=== PATIENT | female | born 1980 | race Caucasian/White ===

== ENCOUNTER 2018-02-02 08:11 | Day surgery (SDC) | payer OTHER, SELFPAY ==
[2018-01-28 15:06] LABS: Hematocrit 36.6 % (37-47); Hemoglobin 11.8 g/dl (12.0-15.0); Mean Corp Hgb Conc 32.2 g/gl (32-36); Mean Corpuscular Hgb 28.4 pg (27.0-32.0); Mean Corpuscular Volume 88.2 fL (81-99); Mean Platelet Vol. 10.6 fl (6.2-12.0); Platelet Count 259 K/mm3 (150-450); RBC Distribution Width CV 14.4 % (11.6-14.6); RBC Distribution Width SD 46.4 fl (35.1-43.9); Red Blood Count 4.15 M/mm3 (4.2-5.4); White Blood Count 7.4 K/mm3 (4.4-11.0)
[2018-01-28 15:10] LABS: Scan Indicated on CBC? Y/N NO
[2018-01-28 16:30] LABS: International Normalized Ratio 0.9; Prothrombin Time (Protime)PT. 12.4 SECONDS (11.7-14.9)
[2018-01-28 16:31] LABS: Partial Thromboplast Time 26.4 Seconds (24.1-36.2)
[2018-01-28 16:40] LABS: Pregnancy, Serum, hCG Quali. NEGATIVE Negative (0-9 Nonpreg)
--- NOTE | 2018-02-01 17:52 | HP.PCM_ITS ---
History and Physical Date of Admission: 02/02/18 Surgical History and Physical Mala Jordan, a 37 year old female 2 0 4 0 2, presents for HTA, Hysteroscopy and laparoscopic bilateral salpingectomy; filsche clips on February 02, 2018 at 10:00. -- Desires Permanent Sterilization; Extremely Heavy Menses -- Heavy periods which began several years ago. Mala claims it started gradually It occurs with menses. It is located in the vagina. Severity is severe and worsening; Associated signs and symptoms are OCPs did not help. Additional comments are: wants a tubal; Additional comments are: U/S shows small 1 cm fibroid in area of cervix and small ovarian cyst. MEDICATIONS HISTORY: Patient is also takin. Celexa 20 mg tablet, daily 2. Xanax 0.5 mg tablet, PRN ALLERGIES: NKA, Sulfa (Sulfonamide Antibiotics), Hives and/or rash, [place], Swelling-mouth, Chlorhexidine and Swelling (localized) Infections - chickenpox as a child Illnesses - no serious past illnesses Accidents - no injuries of consequence Hospitalizations - Childbirth Review of Systems: GENERAL - Denies fever, or chills SKIN - Denies skin changes EYES - wears eye glasses and wears contact lenses EARS - Denies difficulty hearing NOSE - Denies nasal congestion or bleeding MOUTH - Denies sore throat or difficulty swallowing NECK - Denies pain or swelling RESPIRATORY - Denies shortness of breath or wheezing CARDIOVASCULAR - Denies palpitations or chest pain GASTROINTESTINAL - Denies nausea, vomiting, diarrhea, constipation GENITOURINARY - Denies dysuria, frequency of urination, urgency, or hesitancy MUSCULOSKELETAL - Denies joint or muscle pain NEUROLOGICAL - Denies localized numbness or weakness PSYCHIATRIC - Denies depression or anxiety ENDOCRINE - Denies heat or cold intolerance, weight loss or gain HEMATO-IMMUNOLOGIC - Denies excesive bleeding with cuts SOCIAL HISTORY: Alcohol Use - denies drinking Smoking - Smokes--advised to quit Diet - balanced Diet Lifestyle - moderate stress lifestyle and Exercise - active work Seat Belt Use - always Employer - [employer] 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 MENSTRUAL HISTORY: LMP Known?- DefiniteAmount/Duration - 7-10 days, Regularity - regular, Frequency - monthly days, LMP - 01/16/18, Age Onset Menarche - 11 PAST PREGNANCIES: Total Pregnancies - 6; Full Term Pregnancies - 2; Premature - 0; Abortions, Induced - 0; Abortions, Spontaneous - 4; Ectopics - 0; Multiple Births - 0; Living Children - 2 SURGICAL HISTORY: 1. 01/01/2007 ; Kaushal Johnson M.D. 2. repeat 08/11/2016 3. [place] Teeth Removal PHYSICAL EXAM BP- 122/72 Sitting, Right arm, regular cuff Weight- 234.46798 lbs Height- 63.00 inch BMI:41.54 CONSTITUTIONAL - NAD, well nourished, and well developed SKIN - No rash, lesions, or ulcers HEENT - Normocephalic, PERRLA, EOMI NECK - No nodes, no nuchal rigidity and thyroid normal size and texture LYMPH NODES - Palpation of lymph nodes in neck and groins within normal limits LUNGS - CTA x2 without wheezes, crackles or rales CARDIAC - Regular rate and rhythm without rubs, murmurs, or gallops ABDOMEN - Without hepatosplenomegaly, distention, masses, rebound, or guarding; normal bowel sounds; no hernias EXTREMITIES - No edema or calf tenderness NEUROLOGICAL - Cranial nerves II-XII grossly intact PSYCHIATRIC - A and O to time, place, person, mood and affect DETAILED PELVIC EXAM External Genitial Vagina - non-tender without lesions Urethra/Urethral Meatus - non-tender Bladder - non-tender Vagina - vaginal li are pink and moist without loss of rugae and no evidence of atropy Cervix - without cervical motion tenderness and has normal size and features without evident lesions Uterus - 5-6 cm in size, mobile and nontender Adnexa - clear without massess or tenderness ASSESSMENT/PLAN: 1. Encounter For Sterilization and Menorrhagia U/S ok for ablation; EMBx results ok; TSH last fall OK at PCP. Discussed RBAs of HTA and tubal with salpingectomy/Filsche clips at length and will proceed.
--- NOTE | 2018-02-02 | EMB_PTH ---
PATIENT: DARI GILLESPIE LOC: [facility] – [place] U#:[id number] AGE/SX: 37/F ROOM: RE02/02/[address]: Dr. Kaushal Johnson MD : 1980 BED: DIS: 02/02/2018 SPEC #: [id number] RECD: 02/02/18 14:36 STATUS: CHERRIE PAUL #: [id number] MARTY: 02/02/18 00:[address]: Kaushal Johnson DEPT: SURGICAL PATHOLOGY RECD BY: Julio Lopez ENTERED: 02/02/18 14:36 SP TYPE: ENDOM BX/C MICHELLE DR: Dr. Agus Crawford MD Tissues: A - Endometrium, NOS B - Fallopian tube Procedures: Surgery Specimen Level II Surgery Specimen Level IV HEADER OPERATION: Hysteroscopy, hydroablation PRE-OP DIAGNOSIS: Menorrhagia TISSUE SUBMITTED: A ? Endometrial curettings, B ? Bilateral fallopian tubes MICROSCOPIC DIAGNOSIS A. Endometrial curettings: Secretory endometrium. Fragments of benign ecto- and endocervical mucosa. Submucosal leiomyoma (1 cm in greatest dimension). B. Bilateral fallopian tubes: Bilateral fallopian tubes including fimbrial ends, no pathologic diagnosis. Paratubal cyst. Focal changes consistent with serous cystadenofibroma (2 cm in greatest dimension). SJ:rg 02/03/18 COMMENT Case has been reviewed in consultation with Dr. Figueroa who concurs with the above diagnosis. IDC:AM MICROSCOPIC DESCRIPTION Slides are reviewed. GROSS DESCRIPTION A - Received in fixative is one container labeled with the patient's name and designated endometrial curettings. The specimen consists of multiple irregular fragments of pink, hemorrhagic soft tissue that in aggregate measure 5 x 3 x 0.3 cm. Also present in the container is a piece of goddard, indurated nodule measuring 1 x 0.5 x 0.5 cm. The entire specimen is submitted in three cassettes as follows: 1 & 2 - hemorrhagic soft tissue, 3 ? bisected, indurated nodule. B - Received is one container labeled with the patient's name and designated bilateral fallopian tubes. The specimen consists of bilateral fallopian tubes including fimbrial ends. The fallopian tubes are not identified as right or left. One of the fallopian tubes measure 4.5 cm in length and 0.5 cm in diameter. Sections reveal unremarkable cut surfaces. The second fallopian tube is received in two pieces, the proximal and measures 3 cm in length and 0.5 cm in diameter. Sections reveal unremarkable cut surfaces. The second piece consists of fimbrial ends with a paratubal cyst measuring in aggregate 2.5 x 1.5 x 0.5 cm. The paratubal cyst measures up to 1 cm in greatest dimension. A collapsed cyst is also noted which measures 2 cm in greatest dimension. Claims Director sections are submitted in three cassettes as follows: 1 ? intact fallopian tube, 2 ? second fallopian tube, 3 ? paratubal cyst and collapsed cyst. The cysts are submitted in entirety. / SJ:rg 02/02/18 TC:1 CPT: 88053, 79929 x2
[2018-02-02 08:35] LABS: Internal QC Validated? YES +Cl - CLEAR BKGD
[2018-02-02 08:37] LABS: Pregnancy, Urine Negative Negative
[2018-02-02 09:00] VITALS: BP 123/58; PULSE 74; RESP 16; TEMP 36.3; O2SAT 98; BMI 41.5
--- NOTE | 2018-02-02 10:48 | OP.PCM_ITS ---
Operative Report Date of Procedure: 02/02/18 Surgeon: Kaushal Johnson MD, FACOG Anesthesia: Sarina Paige CRNA Type of anesthesia: General Endotracheal Procedure: Diagnostic Hysteroscopy, Dilation and Curettage, Hydrothermal Ablation, Laparoscopic Bilateral Tubal Occlusion with Filshie clips and Partial Bilateral Distal Salpingectomy Pre-op: Menorrhagia, Desires Sterilization Post-Op: Menorrhagia, Desires Sterilization Findings: 10-12 cm EM cavity with plush endometrium and 1 cm submucous fibroid; adhesions of the omentum to the anterior abdominal wall and some small adhesions of the uterus to the anterior abdominal wall from prior C-sections. Left 2.5 cm peritubal cyst; normal pelvis otherwise. Robotic hysterectomy would be feasible but takedown of some omental adhesions would be necessary. Indication: This is a 37 year old patient who has been having problems with extremely heavy menses. She also desires permanent sterilization. Conservative measures have not been helpful. Endometrial sampling was benign and pelvic ultrasound showed that ablation may be helpful. Pt has been counseled regarding the risks, benefits and alternatives of this procedure and all questions answered. She understands that only about half of patients will have amenorrhea after this procedure. She also understands the permanent nature of her tubal as well as the failure rate of 1-2%. All questions were answered we consider the patient well-informed. Procedure: Patient taken to the operating room where after induction of general anesthesia the patient was prepped and draped in the usual sterile fashion. Bladder was drained of urine with a catheter. Anterior cervix grasped and cervix was dilated to about 17 [place] size. Hysteroscopic hydrothermal ablation (HTA) unit was place in the cervix and the above findings were noted. HTA unit was removed and the uterus was gently curretted removing all contents including the submucous fibroid. An HTA ablation cycle was attempted but there was unacceptable loss of fluid and after 3 tries the unit shutdown. This was thought due to the enlarged uterus and subsequent relaxation. Pitocin was given, Conn cannula was placed and attention was turned toward the laparoscopic portion of the procedure. Approximately 20 cc of half percent ropivacaine was injected subumbilically and suprapubically. A 5 mm bladeless trocar was placed subumbilically and intraperitoneal placement confirmed. After CO2 insufflation was complete, a 7- 8 mm bladeless trocar was introduced suprapubically. The above findings were noted. Each fallopian tube was identified to its fimbriated end and an Enseal device was used to divide the mesosalpinx leaving approximately 1 cm stump of fallopian tube on each side. Filshie clips were placed on the stump of each fallopian tube. Photographs were taken. Laparoscopic instruments with as much CO2 gas as possible were removed and incisions were closed with interrupted 4-0 Monocryl suture. Steri-Strips placed across the incision. Attention was again turned toward the hydrothermal ablation portion of the procedure. A new unit was placed in the cervix and a 10-minute heat cycle was carried out at approximately 90 ?C without difficulty and without loss of fluid and an appropriate cool down cycle. Excellent ablation was visualized after completing this portion of the procedure. Patient tolerated procedure well was taken to recovery room in satisfactory condition sponge instrument and needle counts were all reportedly correct. Estimated blood loss for the case was minimal. Specimens to pathology were endometrial curettings and bilateral distal fallopian tubes.
--- NOTE | 2018-02-02 10:49 | DCINST_ITS ---
Discharge Diet: No Restrictions Discharge Activity: Return to Normal Activity, May Drive - when you are no longer taking pain/narcotic medicines., May Shower, May Take a Tub Bath Additional Activity Instructions:: Ambulate often the next week after surgery. Nothing in the vagina for 5 days. Call your doctor if your incision/area has: Continuous Slow Oozing, Sudden Increased Bleeding, Increased Pain/ Swelling, Increased Redness, Foul Smelling Discharge Call your doctor if you observe: Fever of 101 or Higher, Inability to urinate, Inability to have a bowel movement, Using more than one pad per hour Allergies/Adverse Reactions: Allergies Sulfa (Sulfonamide Antibiotics) Allergy (Verified 01/28/18 09:15) Hives Medications to take at Discharge ALPRAZolam [Xanax] 0.5 mg PO BID PRN PRN 01/28/18 Citalopram Hydrobromide [Celexa] 20 mg PO DAILY 01/28/18 Hydrocodone/Acetaminophen [[place] 5-325 Tablet] 1 ea PO Q4H PRN PRN 7 Days #10 tab 02/02/18 The following prescriptions were given: Hydrocodone/Acetaminophen [[place] 5-325 Tablet] 1 ea PO Q4H PRN PRN 7 Days #10 tab PRN Reason: Severe Pain (6-04/29) Primary Care Physician: Agus Crawford MD [Primary Care Provider] - Test Results: Test results from this visit will be discussed in further detail at your follow- up appointment, if applicable. Please Follow Up With: Kaushal Johnson MD - [phone] When: 2-3 weeks
[2018-02-02] MEDS: Ropivacaine 0.5% 30 ML Vial (11:30)
[2018-02-02 12:39] VITALS: BP 121/57; BP 123/58; PULSE 78; RESP 16; TEMP 36; O2SAT 94
[2018-02-02 12:45] VITALS: BP 107/50; BP 123/58; PULSE 78; RESP 16; O2SAT 93
[2018-02-02 13:00] VITALS: BP 115/57; BP 123/58; PULSE 71; RESP 16; TEMP 36.1; O2SAT 99
[2018-02-02 14:42] VITALS: BP 123/58
== END 2018-02-02 14:43 | disposition home or self-care (01) ==
LOC: SDC 08:11 → AC 08:12
PROVIDERS: Anesthesiology; Family Provider Family Medicine; PCP Family Medicine; Visit Provider Obstetrics & Gynecology
PROC: 0U5B8ZZ Destruction of Endometrium, Via Natural or Artificial Opening Endoscopic (ICD-10-PCS; CPT 58563; principal; 2018-02-02 09:45)
PROC: (CPT 58671; 2018-02-02 09:45)
DX: D25.0 Submucous leiomyoma of uterus (principal); N83.209 Unspecified ovarian cyst, unspecified side; Z30.2 Encounter for sterilization; N83.8 Other noninflammatory disorders of ovary, fallopian tube and broad ligament; F32.9 Major depressive disorder, single episode, unspecified; F41.9 Anxiety disorder, unspecified; F17.200 Nicotine dependence, unspecified, uncomplicated; Z79.899 Other long term (current) drug therapy; Z86.2 Personal history of diseases of the blood and blood-forming organs and certain disorders involving the immune mechanism
CPT/HCPCS: 58563; 58671; 36415; 81025; 84703; 85027; 85610; 85730; 86850; 86900; 88302; 88305; J7120; C1760; J2405

== ENCOUNTER 2018-11-30 05:27 | Day surgery (SDC) | payer OTHER, SELFPAY ==
[2018-11-25 15:34] LABS: Hematocrit 37.5 % (37-47); Hemoglobin 12.3 g/dl (12.0-15.0); Mean Corp Hgb Conc 32.8 g/gl (32-36); Mean Corpuscular Hgb 28.1 pg (27.0-32.0); Mean Corpuscular Volume 85.8 fL (81-99); Mean Platelet Vol. 10.7 fl (6.2-12.0); Platelet Count 294 K/mm3 (150-450); RBC Distribution Width CV 14.4 % (11.6-14.6); RBC Distribution Width SD 45.3 fl (35.1-43.9); Red Blood Count 4.37 M/mm3 (4.2-5.4); White Blood Count 10.6 K/mm3 (4.4-11.0)
[2018-11-25 15:36] LABS: Partial Thromboplast Time 24.1 Seconds (24.1-36.2); Scan Indicated on CBC? Y/N NO
[2018-11-25 15:53] LABS: Creatinine, Serum 0.95 mg/dL (0.55-1.02); EST Glomerular Filtration Rate 70 mL/min (>60); Est Glom Filt Rate - Afr Amer 84 mL/min (>60)
--- NOTE | 2018-11-29 21:10 | HP.PCM_ITS ---
History and Physical Date of Admission: 11/30/18 Surgical History and Physical Mala Jordan, a 38 year old female 2 0 4 0 2, presents for [facility] on November 30, 2018 at 7:30. -- Pelvic Cramping after Ablation; Hematocolpos -- Heavy Period and alot of cramping which began several weeks ago. Mala claims it started suddenly and has been present worsened in last 2 weeks. It occurs all the time. It is located in the lower abdomen. Mala characterizes it to be non-radiating. Mala characterizes the quality cramping.; Mala characterizes the quality sharp, heavy bleeding x 1. Severity is moderate and very concerned; Additional comments are: Had Ablation 01/2018; Additional comments are: some increasing cramping for a few weeks then bleeding for a few weeks with severe cramping then cramping persisting after bleeding stopped. MEDICATIONS HISTORY: Patient is also takin. Celexa 20 mg tablet, daily ALLERGIES: NKA, Sulfa (Sulfonamide Antibiotics), Hives and/or rash, [place], Swelling-mouth, Chlorhexidine and Swelling (localized) Infections - chickenpox as a child Illnesses - no serious past illnesses Accidents - no injuries of consequence Hospitalizations - Childbirth Review of Systems: GENERAL - Denies fever, or chills SKIN - Denies skin changes EYES - Denies visual changes EARS - Denies difficulty hearing NOSE - Denies nasal congestion or bleeding MOUTH - Denies sore throat or difficulty swallowing NECK - Denies pain or swelling RESPIRATORY - Denies shortness of breath or wheezing CARDIOVASCULAR - Denies palpitations or chest pain GASTROINTESTINAL - Denies nausea, vomiting, diarrhea, constipation GENITOURINARY - Denies dysuria, frequency of urination, incontinence of urine MUSCULOSKELETAL - Denies joint or muscle pain NEUROLOGICAL - Denies localized numbness or weakness PSYCHIATRIC - Denies depression or anxiety ENDOCRINE - Denies heat or cold intolerance, weight loss or gain HEMATO-IMMUNOLOGIC - Denies excesive bleeding with cuts SOCIAL HISTORY: Alcohol Use - denies drinking Smoking - used to smoke but quit and quit 11/18/18 Diet - balanced Diet Lifestyle - moderate stress lifestyle and Exercise - active work Seat Belt Use - always Employer - [employer] -- [employer] 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 MENSTRUAL HISTORY: LMP Known?- HTAAmount/Duration - 8 days, Regularity - regular, Frequency - monthly days, LMP - 11/11/18, Age Onset Menarche - 11 PAST PREGNANCIES: Total Pregnancies - 6; Full Term Pregnancies - 2; Premature - 0; Abortions, Induced - 0; Abortions, Spontaneous - 4; Ectopics - 0; Multiple Births - 0; Living Children - 2 SURGICAL HISTORY: 1. 01/01/2007 ; Kaushal Johnson M.D. 2. 02/02/2018 hysteroscopy, D and C, HTA,Lap BTO with filshie clips and BPDS ; Kaushal Johnson M.D. 3. repeat 08/11/2016 4. [place] Teeth Removal PHYSICAL EXAM BP- 134/58 Sitting, Right arm, regular cuff Weight- 230.56614 lbs Height- 63 inch BMI:40.83 CONSTITUTIONAL - NAD, well nourished, and well developed SKIN - No rash, lesions, or ulcers HEENT - Normocephalic, PERRLA, EOMI NECK - No nodes, no nuchal rigidity and thyroid normal size and texture LYMPH NODES - Palpation of lymph nodes in neck and groins within normal limits LUNGS - CTA x2 without wheezes, crackles or rales CARDIAC - Regular rate and rhythm without rubs, murmurs, or gallops ABDOMEN - Without hepatosplenomegaly, distention, masses, rebound, or guarding; normal bowel sounds; no hernias EXTREMITIES - No edema or calf tenderness NEUROLOGICAL - Cranial nerves II-XII grossly intact PSYCHIATRIC - A and O to time, place, person, mood and affect Uterus - 10-12 cm uterus External Genitial Vagina - non-tender without lesions Urethra/Urethral Meatus - non-tender Bladder - non-tender Vagina - vaginal li are pink and moist without loss of rugae and no evidence of atropy Cervix - without cervical motion tenderness and has normal size and features without evident lesions and dilator with dark black thick liquid from cervix with relief of pain ASSESSMENT/PLAN: 1. Hematocolpos S/P HTA ablation with uterine fibroid removal. Suspicious for fibroid recurrence. Given relief with dilator waited to see if hematocolpos recurs and pain did recur. Given this, plan proceeding with RAVH/BS. Discussed RBAs and all questions answered.
[2018-11-30] VITALS (15 sets, daily range): BP systolic 93–129; BP diastolic 43–65; PULSE 71–103; RESP 14–18; TEMP 35.9–37.4; O2SAT 91–98; BMI 40.4
--- NOTE | 2018-11-30 07:30 | HYST_PTH ---
PATIENT: DARI GILLESPIE LOC: [facility] – [place] U#:[id number] AGE/SX: 38/F ROOM: RE11/30/[address]: Dr. Kaushal Johnson MD : 1980 BED: DIS: 12/01/2018 SPEC #: [id number] RECD: 11/30/18 11:28 STATUS: CHERRIE PAUL #: [id number] MARTY: 11/30/18 07:[address]: Kaushal Johnson DEPT: SURGICAL PATHOLOGY RECD BY: Kailey Crawford ENTERED: 11/30/18 11:49 SP TYPE: HYSTERECT OTHR DR: Niru Hoang PA-C Tissues: Uterus, NOS Procedures: Surgery Specimen Level V HEADER OPERATION: Robotic assisted vaginal hysterectomy PRE-OP DIAGNOSIS: Hematocolpos TISSUE SUBMITTED: Uterus, cervix MICROSCOPIC DIAGNOSIS Uterus, hysterectomy: Cervix - squamous metaplasia and mild chronic inflammation. Endometrium - secretory endometrium with recent mucosal hemorrhage. Myometrium - microscopic leiomyomas. AM:lionel 12/01/18 COMMENT Microscopic leiomyomas are identified in the superficial myometrium. One of these leiomyomas forms a polypoid mass extending into the endometrial cavity. Reference is made to the patient's previous endometrial curettings ([id number]) in which fragments of benign submucosal leiomyoma were identified. MICROSCOPIC DESCRIPTION Slides are reviewed. GROSS DESCRIPTION Received in fixative is one container labeled with the patient's name and designated uterus, cervix. The specimen consists of a hysterectomy specimen consisting of uterus with cervix weighing 92 gm and measuring 10 x 6 x 4 cm. The serosal surface is focally ragged. Most of the resection margin surface is ragged. The external os is circular in contour. The ectocervical mucosa is unremarkable. The uterus is partially disrupted at the level of internal os. The endocervical canal measures 4 cm in length and the endocervical mucosa is goddard, glistening and unremarkable. The triangular endometrial cavity measures 4 cm in length and up to 2 cm in width. No obvious blood clots are noted in the endometrial cavity. The endometrium is goddard, glistening and measures 0.1 cm in thickness and shows a small sessile polyp measuring 0.3 cm in greatest dimension. The myometrial wall underneath the polyp is not indurated. The rest of the myometrium measures <0.1 cm in thickness. Sections of the uterine wall do not reveal any mass lesion and measures 2 cm in thickness. Improvement Advisor sections are submitted in seven cassettes as follows: 1 - anterior cervix, 2 - posterior cervix, 3 & 4 - anterior uterine wall, 5 & 6 - posterior uterine wall, 7 - endometrial polyp and underlying uterine wall. The polyp is submitted in entirety. / SJ:lionel 11/30/18 TC:1 CPT: 56767
--- NOTE | 2018-11-30 07:42 | OP.PCM_ITS ---
Report of Operation Date of Procedure: 11/30/18 Pre-Operative Diagnosis: Pain and Hematocolpos Status Post Endometrial Ablation Post-Operative Diagnosis: Pain and Hematocolpos Status Post Endometrial Ablation Description of Surgical Findings:: 10 to 12 cm size uterus with absent fallopian tubes and normal-appearing ovaries. Adhesions of omentum to anterior abdominal wall taken down with cautery and sharp dissection. Dense adhesions of bladder to anterior uterus. underground production foreperson: Jose A Arroyo Type of Anesthesia:: General - Endotracheal Anesthesiologist: Abdon Lindquist Specimen's removed: Uterus Drains: Gaytan to straight drain Estimated Blood Loss (mL): Minimal Fluids Replaced: Crystalloid Description of Procedure: Surgeon: Kaushal Johnson MD, FACOG Indication: This is a 38 year old patient who has been having problems with pelvic pain after an endometrial ablation. She has had 2 prior sections. She has had a prior tubal ligation done. Conservative measures have not been helpful. The patient has been counseled regarding the risks, benefits and alternatives of this procedure including the possibility of bleeding, infection, and injury to surrounding structures such as bowel bladder and all questions were answered. Procedure: Pt taken to the operating room where after induction of general anesthesia the patient was prepped and draped in the usual sterile fashion and placed on a non-slip Huggy-u-vac device. Trendendelenburg test was satisfactory. Bladder was drained of urine with a Gaytan catheter which was left in place. Anterior cervix grasped and cervix was dilated to about 3-4 mm. Uterus sounded to 7 cms. 0-Vicryl suture was placed at the 3:00 and 9:00 position of the cervix. A small uterine manipulation device was then placed in the uterus to allow uterine manipulation and attention was turned to the laparoscopic portion of the procedure. Ropivocaine 0.5% was injected approximately 2-3 cm superior to the umbilicus and an 8 mm robotic port was introduced directly on the left side with intraperitoneal placement confirmed with insufflation. 8 mm robotic camera port and right side port was introduced under direct visualization the side ports were placed approximately 11-13 cm lateral and 2 cm inferior to the umbilical port. A 5 mm left upper quadrant port was introduced and airseal insufflation with CO2 was started. The above findings were noted. Robot was docked without difficulty and attention turned to the robotic portion of the procedure. Approximately 30 cc of Ropivicaine was used. Omental adhesions were taken down with both sharp and blunt dissection as well as using the monopolar and bipolar cautery. Bilateral remaining mesosalpinx were ligated with 35 okeefe bipolar coagulation to the level of the round ligament. The posterior aspect of the cervix was identified and then opened for about 1 cm using 25 watt monopolar cautery identifying the V-care device which had been placed vaginally. Bladder flap was opened as far as possible and adhesions were taken down and divided to the level of the round ligaments using monopolar cautery. Progressive bites were then ligated on each side of the cervix with 35 okeefe bipolar cautery to the uterine arteries. The uterine manipulator device perforated through the anterior cervix in the course of this procedure which made it more difficult to identify the anterior vaginal mucosa. However, the anterior vaginal mucosa was eventually entered and cervix circumscribed with monopolar cautery. Uterus and any attached remaining tubes were then removed through the vagina. Vaginal cuff was closed first with 0- Vicryl Juice stitches placed at each angle followed by closure of the mid-cuff with 0-Monocryl V-lock suture in two layers. Pelvis was copiously irrigated with saline and the right ureter leblanc noted to peristalse. Robot was undocked and trocars were removed with as much CO2 gas as possible. Incisions were closed with 4-0 Monocryl subcuticular sutures and incisions covered with steri-strips and opsite dressing. The patient tolerated the procedure well and was taken to the recovery room in satisfactory condition. Sponge, instruments and needle counts were all correct. There were no apparent complications of the surgery. Cefotan 2 gms IV was given prior to the procedure. Estimated blood loss for the case was minimal. Grafts/Implants Used: None - Complications None - Admit VTE Documentation VTE Present on Admission: Yes VTE Mechan Device Prophylaxis: SCD's VTE Pharm Prophylaxis ordered?: Yes
--- NOTE | 2018-11-30 07:43 | DCINST_ITS ---
Discharge Diet: No Restrictions Discharge Activity: Return to Normal Activity, May Not Drive - while taking narcotic pain medications., May Shower, May Take a Tub Bath May resume sexual activity in: 6-8 weeks Call your doctor if your incision/area has: Continuous Slow Oozing, Sudden Inc reased Bleeding, Increased Pain/ Swelling, Increased Redness, Foul Smelling Discharge Call your doctor if you observe: Fever of 101 or Higher, Inability to urinate, Inability to have a bowel movement, Using more than one pad per hour Allergies/Adverse Reactions: Allergies Sulfa (Sulfonamide Antibiotics) Allergy (Verified 11/23/18 10:56) Hives Medications to take at Discharge Citalopram Hydrobromide [Celexa] 20 mg PO DAILY 01/28/18 Docusate Sodium [Colace] 100 mg PO BID PRN PRN #60 cap 11/30/18 Oxycodone [Oxyir] 5 mg PO Q6H PRN PRN 7 Days #20 tab 11/30/18 The following prescriptions were given: Oxycodone [Oxyir] 5 mg PO Q6H PRN PRN 7 Days #20 tab PRN Reason: Severe Pain (-04/29) Docusate Sodium [Colace] 100 mg PO BID PRN PRN #60 cap PRN Reason: Constipation Primary Care Physician: Niru Hoang PA-C [Primary Care Provider] - Test Results: Test results from this visit will be discussed in further detail at your follow- up appointment, if applicable. Please Follow Up With: Kaushal Johnson MD When: 2-3 weeks
[2018-11-30] MEDS: Ropivacaine 0.5% 30 ML Vial (09:00)
[2018-11-30] MEDS: Dextrose 5%-Lactated Ringers 1,000 ML 150 ML IV ×2 (13:07→19:39)
[2018-11-30] MEDS: Ketorolac 30 MG/ML Syringe IV ×2 (14:53→19:41)
[2018-11-30] MEDS: Citalopram 20 MG Tablet PO (14:53)
[2018-11-30] MEDS: Enoxaparin 30 MG/0.3 ML Syringe SC (17:05)
[2018-12-01 02:10] VITALS: BP 117/55; PULSE 90; RESP 16; TEMP 37.1; O2SAT 96
[2018-12-01] MEDS: 0.9% NaCl Peripheral Flush Adult/Peds IV (02:18)
[2018-12-01] MEDS: Ketorolac 30 MG/ML Syringe IV (02:18)
[2018-12-01 06:16] LABS: Hematocrit 34.5 % (37-47); Hemoglobin 11.3 g/dl (12.0-15.0); Mean Corp Hgb Conc 32.8 g/gl (32-36); Mean Corpuscular Volume 85.4 fL (81-99); Mean Platelet Vol. 10.6 fl (6.2-12.0); Platelet Count 272 K/mm3 (150-450); RBC Distribution Width CV 14.3 % (11.6-14.6); RBC Distribution Width SD 44.6 fl (35.1-43.9); Red Blood Count 4.04 M/mm3 (4.2-5.4); White Blood Count 14.2 K/mm3 (4.4-11.0)
[2018-12-01 06:21] LABS: Scan Indicated on CBC? Y/N NO
[2018-12-01 06:30] LABS: Creatinine, Serum 0.78 mg/dL (0.55-1.02); EST Glomerular Filtration Rate 87 mL/min (>60); Est Glom Filt Rate - Afr Amer 106 mL/min (>60)
[2018-12-01 07:15] VITALS: O2SAT 94
[2018-12-01] MEDS: Ketorolac 10 MG Tablet PO (08:25)
[2018-12-01] MEDS: Citalopram 20 MG Tablet PO (08:25)
--- NOTE | 2018-12-01 08:55 | PCM.PN.OB ---
Subjective: Patient without complaints. Tolerating diet well. Positive flatus. Able to void on her own. - Physical Exam Vital Signs Temp Pulse Resp BP Pulse Ox 98.7 F 90 16 117/55 L 94 12/01/18 02:10 12/01/18 02:10 12/01/18 02:10 12/01/18 02:10 12/01/18 07:15 Oxygen Delivery Method Room Air Weight: 228 lb 2.855 oz Body Mass Index (BMI) 40.4 Intake and Output for Last 24 Hours 11/29/18 11/30/18 12/01/18 23:59 23:59 23:59 Intake Total 6100 / 6100 2291 / 2291 Output Total 1825 / 1825 2825 / 2825 Balance 4275 / 4275 -534 / -534 Laboratory Tests Past 24 Hrs 12/01/18 12/01/18 05:45 05:45 WBC 14.2 H RBC 4.04 L Hgb 11.3 L Hct 34.5 L MCV 85.4 MCH 28.0 MCHC 32.8 RDW 14.3 RDW Differential 44.6 H Plt Count 272 MPV 10.6 Creatinine 0.78 Estim Creat Clear Calc 80.90 Est GFR (MDRD) Af Amer 106 Est GFR (MDRD) Non-Af 87 Wounds are clean, dry, intact. Good urine output. Hemoglobin and creatinine okay. Medical Necessity - Tobacco Use Smoking Status: Former smoker Tobacco Use: Non-smoker Assessment/Plan Doing well postoperative day #1 status post robotic assisted vaginal hysterectomy. Will release to home with routine instructions.
[2018-12-01 10:21] VITALS: BP 106/50; PULSE 83; RESP 18; TEMP 37.1; O2SAT 97
== END 2018-12-01 10:33 | disposition home or self-care (01) ==
LOC: SDC 05:27 → AC 05:29 → MS3 08:25
PROVIDERS: Family Provider Family Medicine; PCP Family Medicine; Referring Provider Obstetrics & Gynecology; Visit Provider Obstetrics & Gynecology
PROC: 0UT94ZZ Resection of Uterus, Percutaneous Endoscopic Approach (ICD-10-PCS; CPT 58570; principal; 2018-11-30 07:10)
DX: N89.7 Hematocolpos (principal); N87.9 Dysplasia of cervix uteri, unspecified; N72 Inflammatory disease of cervix uteri; F32.9 Major depressive disorder, single episode, unspecified; F41.9 Anxiety disorder, unspecified; Z79.899 Other long term (current) drug therapy; Z87.891 Personal history of nicotine dependence; Z98.51 Tubal ligation status
CPT/HCPCS: 00840; 58570; S2900; 36415; 82565; 85027; 85610; 85730; 86850; 86900; 88307; J7120; A4216; J2405